=== PATIENT | female | born 1950 | race Caucasian/White ===

== ENCOUNTER → 2020-09-05 | Outpatient (CLI) | payer MEDICARE | LOC: RAD 10:58 | PROVIDERS: ATTEND Family Medicine | DX: J44.9 Chronic obstructive pulmonary disease, unspecified (principal); F17.210 Nicotine dependence, cigarettes, uncomplicated | CPT/HCPCS: 71046 ==

== ENCOUNTER → 2021-02-13 | Outpatient (CLI) | payer MEDICARE, OTHER | LOC: RAD 11:32 | PROVIDERS: ATTEND Student in an Organized Health Care Education/Training Program | DX: M54.2 Cervicalgia (principal); M54.59 Other low back pain; M25.562 Pain in left knee; M25.561 Pain in right knee | CPT/HCPCS: 72050; 72110 ==

== ENCOUNTER → 2022-11-26 | Outpatient (REF) | payer MEDICARE, OTHER | LOC: RAD 13:45 | PROVIDERS: ATTEND Student in an Organized Health Care Education/Training Program | DX: M54.2 Cervicalgia (principal); M25.512 Pain in left shoulder; M25.511 Pain in right shoulder; M54.17 Radiculopathy, lumbosacral region | CPT/HCPCS: 72052; 72114 ==

== ENCOUNTER → 2022-12-10 | Outpatient (REF) | payer MEDICARE, OTHER | LOC: RAD 12-09 14:18 | PROVIDERS: ATTEND Family Medicine | DX: R07.81 Pleurodynia (principal) | CPT/HCPCS: 71101 ==

== ENCOUNTER → 2023-03-16 | Outpatient (REF) | payer MEDICARE | LOC: RAD 13:35 | PROVIDERS: ATTEND Orthopaedic Surgery Hand Surgery | DX: M79.641 Pain in right hand (principal) ==

== ENCOUNTER → 2023-04-19 | Outpatient (REF) | payer MEDICARE | LOC: RAD 12:33 | PROVIDERS: ATTEND Orthopaedic Surgery Hand Surgery | DX: S62.521D Displaced fracture of distal phalanx of right thumb, subsequent encounter for fracture with routine healing (principal) ==

== ENCOUNTER → 2024-02-18 | Outpatient (REF) | payer MEDICARE ==
[~2024-02-18] MED LIST: ADVAIR 250-501 EACH INH; ADVAIR 500/501 EA INH; CITALOPRAM HBR20 MG PO; CLOTRIMAZOLE-BE15 GM TOP; CYMBALTA20 MG PO; DIFLUCAN100 MG PO; FLUCONAZOLE100 MG PO; GABAPENTIN400 MG PO; HYDROCHLOROTHIA25 MG PO; HYDROCODON-ACE1 EAC9 PO; HYDROXYZINE HCL25 MG PO; LEVOTHYROXINE112 MCG PO; LOSARTAN POTASS25 MG PO; METHOCARBAMOL750 MG PO; OMEPRAZOLE40 MG PO; ONDANSETRON ODT8 MG PO; PRAVASTATIN SOD40 MG PO; SPIRIVA18 MCG INH; VALACYCLOVIR500 MG PO
== END ==
LOC: RAD 14:09
PROVIDERS: ATTEND Student in an Organized Health Care Education/Training Program
DX: M25.561 Pain in right knee (principal)